=== PATIENT | male | born 1965 ===

== ENCOUNTER 2021-04-14 15:21 | Inpatient (IN) | payer BC ==
[2021-04-14] MEDS ORDERED: Lidocaine 2% with EPINEPHrine 1:100,000 20 ML MDV INJECT ONE (17:17)
[2021-04-14] MEDS ORDERED: Mupirocin Oint 22 GM Tube ONE (17:45)
[2021-04-14] MEDS ORDERED: diphenhydrAMINE 50 MG Cap PO PRN (17:52)
--- NOTE | 2021-04-14 18:55 | EDM.PDOC ---
ED HPI GENERAL MEDICAL PROBLEM - General Chief Complaint: Lower Extremity Injury/Pain Stated Complaint: right thight legion Time Seen by Provider: 04/14/21 16:20 Source of Information: Reports: Patient History Limitations: Reports: No Limitations - History of Present Illness INITIAL COMMENTS - FREE TEXT/NARRATIVE: 55-year-old male presents to the ED after being seen in the clinic 1 month ago and yesterday for what was diagnosed as a fungal skin infection. Now complaining of deformity, heat, pain on the medial proximal thigh near the inguinal fold. Patient has decreased oral intake, decreased energy/fatigue, fever. Patient has been having pruritus in the sacral cleft and groin area for 1 month. Patient was originally treating it with a topical [place], was given oral terbinafine yesterday. But wound began to drain purulent material yesterday and became much larger described as the size of a golf ball. Patient denies any chest pain, shortness of breath, syncope/near syncope, nausea vomiting, diarrhea constipation black tarry stool or blood on the stool. 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: Other (see below) Other 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 CLERK: cpap Right Thigh Pain Score (Numeric/FACES): 8 - Related Data Allergies Allergy/AdvReac Type Severity Reaction Status Date / Time No Known Allergies Allergy Verified 04/14/21 17:06 Home Meds: Home Meds Cholecalciferol (Vitamin D3) [Vitamin D3] 1,000 unit PO DAILY 04/14/21 [History] Pramipexole [Mirapex] 0.75 mg PO BEDTIME 04/14/21 [History] Terbinafine [LamISIL] 250 mg PO DAILY 04/14/21 [History] lisinopriL [Lisinopril] 10 mg PO DAILY 04/14/21 [History] Past Medical History HEENT History: Reports: Impaired Vision Social & Family History - Tobacco Use Tobacco Use Status *Q: Never Tobacco User Second Hand Smoke Exposure: Yes - Caffeine Use Caffeine Use: Reports: Soda - Recreational Drug Use Recreational Drug Use: No Review of Systems - Review of Systems Review Of Systems: See Below Constitutional: Reports: No Symptoms Eyes: Reports: No Symptoms Ears: Reports: No Symptoms Nose: Reports: No Symptoms Mouth/Throat: Reports: No Symptoms Respiratory: Reports: No Symptoms Cardiovascular: Reports: No Symptoms GI/Abdominal: Reports: No Symptoms Genitourinary: Reports: No Symptoms Musculoskeletal: Reports: No Symptoms Skin: Reports: Pruritis (Groin and sacral cleft, inner thighs bilateral), Rash (Same as pruritus), Other Neurological: Reports: No Symptoms Psychiatric: Reports: No Symptoms ED EXAM, GENERAL - Physical Exam Exam: See Below Free Text/Narrative:: 55-year-old male, found lying semi-Fowlers in trauma bay 3. No apparent distress, speaking in full sentences, no obvious trauma. Alert and oriented 3 of 3 GCS 4 5 6 Exam Limited By: No Limitations General Appearance: Alert, WD/WN, No Apparent Distress Eye Exam: Bilateral Eye: EOMI, PERRL Ears: Normal External Exam, Hearing Grossly Normal Nose: Normal Inspection, Normal Mucosa, No Blood Throat/Mouth: Normal Inspection, Normal Lips, Normal Teeth, Normal Gums, Normal Oropharynx, Normal Voice, No Airway Compromise Head: Atraumatic, Normocephalic Neck: Normal Inspection, Supple, Non-Tender, Full Range of Motion Respiratory/Chest: No Respiratory Distress, Lungs Clear, Normal Breath Sounds, No Accessory Muscle Use, Chest Non-Tender Cardiovascular: Normal Peripheral Pulses, Regular Rate, Rhythm, No Edema, No Gallop, No JVD, No Murmur, No Rub GI/Abdominal: Normal Bowel Sounds, Soft, Non-Tender, No Organomegaly, No Distention, No Abnormal Bruit, No Mass (Male) Exam: Testicular Tenderness (R) (Small 3 mm lesion) Back Exam: Normal Inspection. No: CVA Tenderness (R), CVA Tenderness (L), M uscle Spasm, Paraspinal Tenderness, Vertebral Tenderness Extremities: Leg Pain (Cellulitis located on the medial aspect of both thighs, abscess 3cm right proximal medial thigh, draining purulent material) Neurological: Alert, Oriented, CN II-XII Intact, Normal Cognition, Normal Gait, Normal Reflexes, No Motor/Sensory Deficits Psychiatric: Normal Affect, Normal Mood Skin Exam: Rash (Inner thigh bilateral including sacral cleft, and scrotum previously diagnosed as fungal infection.), Other (Inner thigh bilateral erythema, heat, tender right inner thigh near inguinal fold approximately 3 cm abscess with with a draining opening with purulent material. Sacral cleft predominantly right sided erythema, heat, tender with 5 mm abscess superficial, cellulitis outlined with surgical marker) Lymphatic: No Adenopathy ED TRAUMA EXTREMITY PROCEDURES - I&D Site: Right medial proximal thigh, sacral cleft Skin Prep: Chlorhexidine (Hibiciens) Local Anesthesia: Lidocaine: 2% with EPI Local Anesthetic Volume: 5cc Area Incised With: 15 Blade Drainage: Purulent, Moderate Amount Probed to Break Up Loculations: Yes Packed With: 1/4 in. Iodoform Sterile Dressing: Other (Tegaderm) Complications: No Progress/Comments: Hole through which abscess was draining was enlarged, probed with forceps loculations were broken expressed approximately 30 cc purulent material. Packed with iodoform quarter-inch covered with Tegaderm with a wick. Sacral cleft next and expressed minimal amount of purulent material probed to find very superficial no loculations no need for packing dressed with mupirocin and a Band-Aid Course - Vital Signs Last Recorded V/S: Last Vital Signs Temp 97.6 F 04/14/21 19:02 Pulse 80 04/14/21 19:02 Resp 16 04/14/21 19:02 BP 146/96 H 04/14/21 19:02 Pulse Ox 97 04/14/21 19:02 - Orders/Labs/Meds Orders: Active Orders 24 hr Category Date Time Status CULTURE MRSA SURVEY [] Stat Lab 04/14/21 17:10 Received CULTURE WOUND + SMEAR [] Stat Lab 04/14/21 17:10 Received Medication Orders Diphenhydramine HCl (Diphenhydramine 50 Mg Cap) 50 mg PO BEDTIME PRN PRN Reason: Sleep Vancomycin HCl 2 gm/ Sodium (Chloride) 250 mls @ 100 mls/hr IV Q12H [facility] Last Admin: 04/14/21 20:37 Dose: 100 mls/hr Documented by: KYLEIGH Lactobacillus Acidophilus (Lactobacillus Acidophilus/Lactobacillus Sporogenes (Probiotic) Tab) 2 tab PO BID [facility] Last Admin: 04/14/21 20:31 Dose: 2 tab Documented by: KYLEIGH Lisinopril (Lisinopril 10 Mg Tab) 10 mg PO DAILY [facility] Mupirocin (Mupirocin Oint 22 Gm Tube) 1 gm TOP DAILY [facility] Non-Formulary Medication (Cholecalciferol (Vitamin D3) [Vitamin D3]) 1,000 unit PO DAILY [facility] Non-Formulary Medication (Pramipexole [Mirapex]) 0.75 mg PO BEDTIME [facility] Last Admin: 04/14/21 20:31 Dose: 0.75 mg Documented by: KYLEIGH Terbinafine HCl (Terbinafine 250 Mg Tab) 250 mg PO DAILY [facility] Labs: Laboratory Tests 04/14/21 04/14/21 04/14/21 Range/Units 17:10 17:10 17:15 WBC 12.8 H D (4.0-11.0) K/uL RBC 4.50 (4.50-6.50) M/uL Hgb 14.5 (13.0-18.0) g/dL Hct 41.9 (40.0-54.0) % MCV 93 (76-96) fL MCH 32.2 H (27.0-32.0) pg MCHC 34.6 (31.0-35.0) g/dL RDW 12.9 (11.0-16.0) % Plt Count 165 (150-400) K/uL MPV 9.0 (6.0-10.0) fL Neut % (Auto) 77.9 H (45.0-70.0) % Lymph % (Auto) 10.3 L (20.0-40.0) % [place] % (Auto) 11.0 H (3.0-10.0) % Eos % (Auto) 0.6 L (1.0-5.0) % Baso % (Auto) 0.2 (0.0-0.5) % Neut # (Auto) 9.95 H (2.00-7.50) K/uL Lymph # (Auto) 1.31 L (1.50-4.00) K/uL [place] # (Auto) 1.41 H (0.20-0.80) K/uL Eos # (Auto) 0.08 (0.04-0.40) K/uL Baso # (Auto) 0.02 (0.02-0.10) K/uL Sodium 136 (136-145) mmol/L Potassium 4.0 (3.5-5.1) mmol/L Chloride 103 (98-107) mmol/L Carbon Dioxide 26.7 (21.0-32.0) mmol/L Anion Gap 10.3 (5.0-15.0) mmol/L BUN 18 (8-26) mg/dL Creatinine 0.97 D (0.70-1.30) mg/dL Est Cr Clr Drug Dosing 91.65 mL/min Estimated GFR (MDRD) > 60 (>60) MLS/MIN BUN/Creatinine Ratio 18.6 (6-25) Glucose 107 H (74-100) mg/dL Calcium 9.4 (8.5-10.1) mg/dL SARS-CoV-2 RNA (ALLEN) Negative (NEGATIVE) Meds: Medications Generic Name Dose Route Start Last Admin Trade Name Cindy PRN Reason Stop Dose Admin Diphenhydramine HCl 50 mg 04/14/21 17:52 Diphenhydramine 50 Mg Cap PO BEDTIME PRN Sleep Vancomycin HCl 2 gm/ Sodium 250 mls @ 100 mls/hr 04/14/21 19:00 04/14/21 20:37 Chloride IV 100 mls/hr Q12H [facility] Administration Lactobacillus Acidophilus 2 tab 04/14/21 20:00 04/14/21 20:31 Lactobacillus Acidophilus/Lactobacillus Sporogenes (Probiotic) Tab PO 2 tab BID [facility] Administration Lisinopril 10 mg 04/15/21 08:00 Lisinopril 10 Mg Tab PO DAILY [facility] Mupirocin 1 gm 04/15/21 08:00 Mupirocin Oint 22 Gm Tube TOP DAILY [facility] Non-Formulary Medication 1,000 unit 04/15/21 08:00 Cholecalciferol (Vitamin D3) [Vitamin D3] PO DAILY [facility] Non-Formulary Medication 0.75 mg 04/14/21 20:00 04/14/21 20:31 Pramipexole [Mirapex] PO 0.75 mg BEDTIME [facility] Administration Terbinafine HCl 250 mg 04/15/21 08:00 Terbinafine 250 Mg Tab PO DAILY [facility] Discontinued Medications Generic Name Dose Route Start Last Admin Trade Name Cindy PRN Reason Stop Dose Admin Lidocaine/Epinephrine 10 ml 04/14/21 17:17 04/14/21 17:17 Lidocaine 2% With Epinephrine 1:100,000 20 Ml Mdv INJECT 04/14/21 17:18 10 ml ONETIME ONE Administration Mupirocin Confirm 04/14/21 17:45 04/14/21 18:21 Mupirocin Oint 22 Gm Tube Administered 04/14/21 17:46 Not Given Dose 22 gm .ROUTE .STK-MED ONE Departure - Departure Time of Disposition: 17:45 Disposition: Refer to Observation Clinical Impression: Cellulitis of leg, right - Discharge Information *PRESCRIPTION DRUG MONITORING PROGRAM REVIEWED*: No *COPY OF PRESCRIPTION DRUG MONITORING REPORT IN PATIENT LYNDA: No Sepsis Event Note (ED) - Evaluation Sepsis Screening Result: No Definite Risk - Focused Exam Vital Signs: Vital Signs Temp Pulse Resp BP Pulse Ox 04/14/21 16:36 99.7 F 96 18 155/83 H 96 - My Orders Last 24 Hours: My Active Orders 04/14/21 17:10 CULTURE MRSA SURVEY [RM] Stat CULTURE WOUND + SMEAR [RM] Stat - Assessment/Plan Last 24 Hours: My Active Orders 04/14/21 17:10 CULTURE MRSA SURVEY [RM] Stat CULTURE WOUND + SMEAR [RM] Stat Assessment:: 55-year-old male who presents for evaluation of a skin rash, abscess as detailed above. History and physical were consistent with cellulitis with an abscess. There is does not appear to be any complication of cellulitis such as necrotizing fasciitis, lymphangitis, lymphadenitis, osteomyelitis, or sepsis. Patient is not immunosuppressed. Plan is I&D fluctuant abscess located on right medial proximal thigh ultrasound was used to confirm fluid collection. Patient tolerated procedure well. Based on extensive cellulitis surrounding abscess and spread to both thighs scrotum and sacral cleft the patient will be admitted for inpatient IV antibiotics for suspected MRSA, will adjust antibiotic based on sensitivities. Patient to continue taking his at home medications. Patient was given Benadryl for pruritus of his rash which is the suspected cause of skin break allowing for hold for bacterial infection. Patient to continue taking prescription terbinafine while inpatient. Vicodin for pain. Patient will be reassessed in the morning. Plan: ABC, history, exam, ultrasound, labs, I&D, wound care, IV, admission, vancomycin Benadryl, Solu-Medrol for pruritus Vancomycin for infection Lamisil for pre-existing fungal infection Vicodin for pain.
[2021-04-14] MEDS ORDERED: PRAMIPEXOLE 0.25 MG PO SCH (20:00)
[2021-04-14] MEDS: Lactobacillus Acidophilus/Lactobacillus Sporogenes (Probiotic) Tab PO SCH (20:31)
[2021-04-14] MEDS ORDERED: Acetaminophen/HYDROcodone 325-5 MG Tab PO PRN (22:09)
--- NOTE | 2021-04-15 07:51 | PCM.HP.2 ---
H&P History of Present Illness - General Date of Service: 04/15/21 Admit Problem/Dx: Admission Diagnosis/Problem Admission Diagnosis/Problem Cellulitis and abscess of leg Source of Information: Patient History Limitations: Reports: No Limitations - History of Present Illness Initial Comments - Free Text/Narative: 55-year-old male presented to the ED complaining of rash and swelling the size of a golf ball on the medial aspect of the proximal thigh with heat and pain. Patient has been dealing with a rash for approximately 30 days patient is been seen twice in the clinic for same once day before yesterday. Both times his bilateral inner thigh pruritus was diagnosed as a fungal infection. Probable source of bacterial infection secondary to skin break from scratching. Redness, pain bilateral proximal medial thigh into the inguinal fold bilateral and up into the sacral cleft multiple small superficial abscesses. Large 3 to 4 cm abscess with an open route to drain located on the right upper medial surface of his thigh. Patient positive for following low-grade fever, decreased oral intake, general malaise. Patient negative for chest pain, shortness of breath, syncope near syncope, nausea vomiting, constipation/diarrhea, blood on stool, blurred vision difficulty swallowing, red swollen joints, changes in urine color smell frequency. Right Thigh Pain Score (Numeric/FACES): 8 - Related Data Allergies/Adverse Reactions: Allergies Allergy/AdvReac Type Severity Reaction Status Date / Time No Known Allergies Allergy Verified 04/14/21 17:06 Home Medications: Home Meds Cholecalciferol (Vitamin D3) [Vitamin D3] 1,000 unit PO DAILY 04/14/21 [History] Pramipexole [Mirapex] 0.75 mg PO BEDTIME 04/14/21 [History] Terbinafine [LamISIL] 250 mg PO DAILY 04/14/21 [History] lisinopriL [Lisinopril] 10 mg PO DAILY 04/14/21 [History] Past Medical History HEENT History: Reports: Impaired Vision Cardiovascular History: Reports: Hypertension Musculoskeletal History: Reports: Other (See Below) Other Musculoskeletal History: Restless legs syndrome Social & Family History - Tobacco Use Tobacco Use Status *Q: Never Tobacco User Second Hand Smoke Exposure: Yes - Caffeine Use Caffeine Use: Reports: Soda - Recreational Drug Use Recreational Drug Use: No H&P Review of Systems - Review of Systems: Review Of Systems: See Below General: Reports: Fever, Malaise, Fatigue, Decreased Appetite HEENT: Reports: No Symptoms Pulmonary: Reports: No Symptoms Cardiovascular: Reports: No Symptoms Gastrointestinal: Reports: No Symptoms, Decreased Appetite. Denies: Abdominal Pain, Anorexia, Black Stool, Bloody Stool, Constipation, Diarrhea, Difficulty Swallowing, Hematochezia, Melena, Nausea, Vomiting Genitourinary: Reports: No Symptoms Musculoskeletal: Reports: Other (See above) Skin: Reports: Other (See above) Psychiatric: Reports: No Symptoms Neurological: Reports: No Symptoms Hematologic/Lymphatic: Reports: No Symptoms Exam - Exam Exam: See Below - Vital Signs Vital Signs: Last Vital Signs Temp 99.8 F 04/15/21 04:00 Pulse 85 04/15/21 04:00 Resp 16 04/15/21 04:00 BP 127/80 04/15/21 04:00 Pulse Ox 96 04/15/21 04:00 Weight: 215 lb - Exam Quality Assessment: Supplemental Oxygen General: Alert, Oriented HEENT: PERRLA, EOMI, Hearing Intact, Mucosa Moist & [place], Nares Patent Neck: Trachea Midline. No: Lymphadenopathy (Do this weird stuff push you continue he can change it wears it if you already have put it in okay), JVD Lungs: Clear to Auscultation, Normal Respiratory Effort Cardiovascular: Regular Rate, Regular Rhythm GI/Abdominal Exam: Normal Bowel Sounds, Soft, Non-Tender, No Organomegaly, No Distention, No Mass (Male) Exam: Rash (Fungal in nature), Other (Cellulitis of his inguinal fold and lower one third of scrotum) Rectal (Males) Exam: Other (Rash fungal, 4 mm superficial abscess right sacral cleft, cellulitis mostly on the right sacral cleft full length of the sacral cleft) Back Exam: Normal Inspection, Full Range of Motion, NT Extremities: Increased Warmth, Redness Skin: Other (See above) Neurological: Normal Speech, Normal Tone Neuro Extensive - Mental Status: Alert, Oriented x3, Normal Mood/Affect, Normal Cognition, Memory Intact Neuro Extensive - Motor, Sensory, Reflexes: Normal Gait, Normal Reflexes Psychiatric: Alert, Normal Affect, Normal Mood - Patient Data Lab Results Last 24 hrs: Laboratory Results - last 24 hr 04/14/21 04/14/21 04/14/21 Range/Units 17:10 17:10 17:15 WBC 12.8 H D (4.0-11.0) K/uL RBC 4.50 (4.50-6.50) M/uL Hgb 14.5 (13.0-18.0) g/dL Hct 41.9 (40.0-54.0) % MCV 93 (76-96) fL MCH 32.2 H (27.0-32.0) pg MCHC 34.6 (31.0-35.0) g/dL RDW 12.9 (11.0-16.0) % Plt Count 165 (150-400) K/uL MPV 9.0 (6.0-10.0) fL Neut % (Auto) 77.9 H (45.0-70.0) % Lymph % (Auto) 10.3 L (20.0-40.0) % [place] % (Auto) 11.0 H (3.0-10.0) % Eos % (Auto) 0.6 L (1.0-5.0) % Baso % (Auto) 0.2 (0.0-0.5) % Neut # (Auto) 9.95 H (2.00-7.50) K/uL Lymph # (Auto) 1.31 L (1.50-4.00) K/uL [place] # (Auto) 1.41 H (0.20-0.80) K/uL Eos # (Auto) 0.08 (0.04-0.40) K/uL Baso # (Auto) 0.02 (0.02-0.10) K/uL Sodium 136 (136-145) mmol/L Potassium 4.0 (3.5-5.1) mmol/L Chloride 103 (98-107) mmol/L Carbon Dioxide 26.7 (21.0-32.0) mmol/L Anion Gap 10.3 (5.0-15.0) mmol/L BUN 18 (8-26) mg/dL Creatinine 0.97 D (0.70-1.30) mg/dL Est Cr Clr Drug Dosing 91.65 mL/min Estimated GFR (MDRD) > 60 (>60) MLS/MIN BUN/Creatinine Ratio 18.6 (6-25) Glucose 107 H (74-100) mg/dL Calcium 9.4 (8.5-10.1) mg/dL SARS-CoV-2 RNA (ALLEN) Negative (NEGATIVE) Result Diagrams: 04/14/21 17:10 04/14/21 17:10 Sepsis Event Note - Evaluation Sepsis Screening Result: No Definite Risk - Focused Exam Vital Signs: Vital Signs Temp Pulse Resp BP Pulse Ox 04/15/21 04:00 99.8 F 85 16 127/80 96 04/14/21 23:00 99.5 F 78 16 126/79 95 - Problem List (1) Fungal infection of the groin SNOMED Code(s): 874461434 ICD Code: B35.6 - TINEA CRURIS Status: Acute Current Visit: Yes (2) Cellulitis of leg, right SNOMED Code(s): 368930123 ICD Code: L03.115 - CELLULITIS OF RIGHT LOWER LIMB Status: Acute Current Visit: Yes Problem List Initiated/Reviewed/Updated: Yes Orders Last 24hrs: Active Orders 24 hr Category Date Time Status Admission Status [Patient Status] [ADT] Routine ADT 04/14/21 22:43 Active Vital Signs [RC] Q4H Care 04/14/21 21:22 Active Consult to Wound Care Services [CONS] Routine Cons 04/15/21 07:41 Active Regular Diet [DIET] Diet 04/15/21 Breakfast Ordered CBC WITH AUTO DIFF [HEME] Routine Lab 04/15/21 Received CULTURE MRSA SURVEY [RM] Stat Lab 04/14/21 17:10 Received CULTURE WOUND + SMEAR [RM] Stat Lab 04/14/21 17:10 Received VANCOMYCIN TROUGH [CHEM] Timed Lab 04/16/21 08:30 Ordered Acetaminophen/HYDROcodone [[place] 325-5 MG] Med 04/14/21 22:09 Active 1 tab PO Q4H PRN Acidophilus/Lactobac Spor [Acidolphilus Extra Strength] Med 04/14/21 20:00 Active 2 tab PO BID Cholecalciferol (Vitamin D3) [Vitamin D3] Med 04/15/21 08:00 Active 25 mcg PO DAILY Mupirocin Oint [Bactroban Oint] Med 04/15/21 08:00 Active 0 gm TOP DAILY Pharmacy Consult [Consult to Pharmacy] Med 04/14/21 22:45 Pending 1 each .XX ASDIRECTED Pramipexole [Mirapex] Med 04/15/21 20:00 Active 0.75 mg PO BEDTIME Terbinafine [LamISIL] Med 04/15/21 08:00 Active 250 mg PO DAILY VANCOmycin 1.5 GM/300 ML 1.5 gm Med 04/15/21 09:00 Active Premix Bag 1 bag IV Q12H diphenhydrAMINE [Benadryl] Med 04/14/21 17:52 Active 50 mg PO BEDTIME PRN lisinopriL [Prinivil] Med 04/15/21 08:00 Active 10 mg PO DAILY Resuscitation Status Stat Resus Stat 04/14/21 18:11 Ordered Medication Orders Hydrocodone Bitart/Acetaminophen (Acetaminophen/Hydrocodone 325-5 Mg Tab) 1 tab PO Q4H PRN PRN Reason: Pain (moderate 4-6) Cholecalciferol (Cholecalciferol (Vitamin D3) 25 Mcg Tab) 25 mcg PO DAILY [facility] Diphenhydramine HCl (Diphenhydramine 50 Mg Cap) 50 mg PO BEDTIME PRN PRN Reason: Sleep Last Admin: 04/14/21 22:30 Dose: 50 mg Documented by: KYLEIGH Vancomycin HCl 1.5 gm/ Premix 300 mls @ 200 mls/hr IV Q12H [facility] Lactobacillus Acidophilus (Lactobacillus Acidophilus/Lactobacillus Sporogenes (Probiotic) Tab) 2 tab PO BID [facility] Last Admin: 04/14/21 20:31 Dose: 2 tab Documented by: KYLEIGH Lisinopril (Lisinopril 10 Mg Tab) 10 mg PO DAILY [facility] Mupirocin (Mupirocin Oint 22 Gm Tube) 0 gm TOP DAILY [facility] Pharmacy Consult (Pharmacy Consult Order) 1 each .XX ASDIRECTED [facility] Pramipexole Dihydrochloride (Pramipexole 0.125 Mg Tab) 0.75 mg PO BEDTIME [facility] Terbinafine HCl (Terbinafine 250 Mg Tab) 250 mg PO DAILY [facility] Assessment/Plan Comment:: Assessment bilateral thigh scrotum and sacral cleft cellulitis with multiple abscesses significant for one 3 to 4 cm abscess on the right medial proximal thigh that was draining. Plan: Cellulitis patient to be treated with vancomycin for suspected MRSA related cellulitis and abscess, pending wound culture and sensitivities, pharmacy to manage. Wound care by PT. Pain to be controlled with Vicodin. Rash/pruritus rash to be treated as fungal with Lamisil p.o., pruritus to be treated with Benadryl and Solu-Medrol as needed. - Mortality Measure Prognosis:: Good
[2021-04-15] MEDS ORDERED: Non-Formulary Medication 1 Each (Cholecalciferol (Vitamin D3) [Vitamin D3] 1,000 UNIT Caps PO SCH (08:00)
[2021-04-15] MEDS ORDERED: Lisinopril 10 MG Tab PO SCH (08:00)
[2021-04-15] MEDS ORDERED: Cholecalciferol (Vitamin D3) 25 MCG Tab PO SCH (08:00)
[2021-04-15] MEDS ORDERED: Terbinafine 250 MG Tab PO SCH (08:00)
[2021-04-15] MEDS ORDERED: Mupirocin Oint 22 GM Tube TOP SCH ×2 (08:00)
[2021-04-15] MEDS: Lactobacillus Acidophilus/Lactobacillus Sporogenes (Probiotic) Tab PO SCH (08:15)
[2021-04-15] MEDS: VANCOmycin 1.5 GM/300 ML 1.5 GM in Premix Bag 1 BAG IV SCH (08:20)
[2021-04-15] MEDS ORDERED: VANCOmycin 1.5 GM/300 ML 300 ML IV SCH ×2 (08:20→20:20)
[2021-04-15] MEDS ORDERED: Vancomycin 2 GM in Sodium Chloride 0.9% 500 ML IV SCH (09:00)
--- NOTE | 2021-04-15 09:50 | PN ---
DATE OF VISIT: 04/15/2021 This 55-year-old male was admitted yesterday through the ER with a groin abscess and cellulitis involving the groin area. He is on vancomycin, waiting on MRSA cultures. His condition has started to improve. He tells me today that he is feeling better. Vital signs today reveal he is afebrile, blood pressure 130/77, pulse 83, O2 sats are 96% on room air. The patient is not complaining of any pain at this time. He did have a wound culture this morning and dressings have been changed. I did see pictures which show there is no active drainage and the patient did have 2 areas incised and drained upon admission. He is also on Lamisil cream. The current plan is to monitor the patient for 1 more day. If the MRSA culture is negative, we can switch his antibiotics and consider discharging him tomorrow. The patient has no further questions or concerns. CRS/MODL /[id number]
[2021-04-15] MEDS ORDERED: Pramipexole 0.125 MG Tab PO SCH (20:00)
[2021-04-15] MEDS ORDERED: Pramipexole 0.125 MG Tab ONE (20:03)
[2021-04-15] MEDS ORDERED: diphenhydrAMINE 50 MG Cap PO PRN (21:46)
[2021-04-15] MEDS ORDERED: diphenhydrAMINE 50 MG Cap ONE (21:50)
[2021-04-16] MEDS ORDERED: Terbinafine 250 MG Tab PO SCH (08:00)
[2021-04-16] MEDS ORDERED: Cholecalciferol (Vitamin D3) 2,000 Unit Cap PO SCH (08:00)
[2021-04-16] MEDS ORDERED: Lactobacillus Acidophilus/Lactobacillus Sporogenes (Probiotic) Tab PO SCH (08:00)
[2021-04-16] MEDS ORDERED: Lisinopril 10 MG Tab PO SCH (08:00)
[2021-04-16] MEDS ORDERED: Mupirocin Oint 22 GM Tube TOP SCH (08:00)
[2021-04-16] MEDS ORDERED: VANCOmycin 1.5 GM/300 ML 300 ML IV SCH (09:00)
[2021-04-16] MEDS ORDERED: Vancomycin 2 GM in Sodium Chloride 0.9% 500 ML IV SCH (11:00)
--- NOTE | 2021-04-16 14:53 | DISCH ---
HISTORY OF PRESENT ILLNESS: A 55-year-old male here with an abscess and cellulitis in the groin area. He came in a couple of days ago. The abscess was I and D'ed with a fairly large amount of discharge. The wound had been packed and repacked a day later with gauze. The patient is on vancomycin and has been definitely improving. He states that he still is tender in this area, but it feels better. PHYSICAL EXAMINATION: The patient's vital signs have been good today. His temperature is 98.2, blood pressure 142/66, pulse 93, O2 sats 94% on room air. Examining the patient's groin and inner thigh area reveals there is gauze protruding from the I and D site. It is dry in nature. I did pull about 2 inches of it out and snipped it off. Nursing staff will cover this with a breathable Band-Aid or dressing. There is still some induration radiating out about 3 cm in all directions from the I and D site, but the patient is not having any tenderness with palpation of this area today and again no drainage is present at all. I had a discussion with the patient about discharge and he would like to go home. I feel that is very reasonable. I previously talked to lab. We did get the culture results back. This is Staph aureus susceptible to Bactrim DS and vancomycin, which he is currently on. We will send him home on Bactrim DS 1 tablet b.i.d. He can increase to 2 tablets b.i.d. within the first day or 2 if he feels his symptoms are getting worse at all. The patient is to go home rest, use heat to the area for 10 to 15 minutes 3-4 times a day, and minimal activity until the symptoms have that is significantly improved. I do want the patient to follow up in the clinic within the next few days and call them either today or tomorrow for appointment time. The patient has no further questions and agrees with the treatment plan. RANDALL/MODL /[id number]
== END 2021-04-16 13:00 | disposition home or self-care (01) | DRG 383 ==
LOC: LB.ED 15:21 → UNDOADMOB 17:45 → LB.MS 17:45
PROVIDERS: ADMIT Physician Assistant; ATTEND Physician Assistant
DX: L03.314 Cellulitis of groin (principal); L03.115 Cellulitis of right lower limb; B35.6 Tinea cruris; Z20.822 Contact with and (suspected) exposure to COVID-19; L02.214 Cutaneous abscess of groin; B95.61 Methicillin susceptible Staphylococcus aureus infection as the cause of diseases classified elsewhere; I10 Essential (primary) hypertension; H54.7 Unspecified visual loss; L29.9 Pruritus, unspecified
CPT/HCPCS: 36415; 80048; 80202; 85025; 87070; 87077; 87186; 87205; A9270-GY; J3370; J7050; U0002